=== PATIENT | male | born 1965 | race Caucasian/White ===

== ENCOUNTER 2017-12-25 08:42 | Observation (INO) | payer OTHER ==
[2017-12-25] MEDS ORDERED: Albuterol/Ipratropium 3.0-0.5 MG/3 ML Neb Soln NEB ONE (08:52)
[2017-12-25] MEDS ORDERED: methylPREDNISolone Sodium Succinate 125 MG/2 ML SDV IVPUSH STA (08:55)
--- NOTE | 2017-12-25 08:56 | EDM.PDOC ---
ED HPI GENERAL MEDICAL PROBLEM - General Stated Complaint: SOB Time Seen by Provider: 12/25/17 08:42 Source of Information: Reports: Patient, Family History Limitations: Reports: Respiratory Distress - History of Present Illness INITIAL COMMENTS - FREE TEXT/NARRATIVE: 52 years old w m with a h/o COPD, quit tobacco use 2 weks ago.Came with family to the ED due to worsening of SOB , Pulse ox was 86% on RA on arrival. Pt could talk 3 word sentences. Pt had exp wheezes as well. No Dizziness, no Lightheadedness, no chest pain, no N/VC/D or any other acute medical issues. BP 126/78 Pulse 101 pulse ox 88 Temp 36.7 Onset Date: 12/22/17 Onset Time: 21:00 Duration: Chronic Location: Reports: Chest Quality: Reports: Same as Previous Episode Severity: Moderate Improves with: Reports: Medication Worsens with: Reports: Movement Context: Reports: Other (COPD) Associated Symptoms: Reports: Cough - Related Data Allergies Allergy/AdvReac Type Severity Reaction Status Date / Time No Known Allergies Allergy Verified 12/25/17 08:52 Home Meds: Home Meds Albuterol [Proventil HFA] 1 puff INH QID PRN 12/25/17 [History] Albuterol/Ipratropium [DuoNeb 3.0-0.5 MG/3 ML] 3 ml .XX QID 12/25/17 [History] Glycopyrrolate/Formoterol Fum [Bevespi Aerosphere Inhaler] 2 puff IH BID [History] ED ROS GENERAL - Review of Systems Review Of Systems: See Below Constitutional: Reports: No Symptoms HEENT: Reports: No Symptoms Respiratory: Reports: Shortness of Breath, Wheezing Cardiovascular: Reports: No Symptoms Endocrine: Reports: No Symptoms GI/Abdominal: Reports: No Symptoms : Reports: No Symptoms Musculoskeletal: Reports: No Symptoms Skin: Reports: No Symptoms Neurological: Reports: No Symptoms Psychiatric: Reports: No Symptoms Hematologic/Lymphatic: Reports: No Symptoms Immunologic: Reports: No Symptoms ED EXAM, GENERAL - Physical Exam Exam: See Below Exam Limited By: No Limitations General Appearance: Alert, WD/WN, Moderate Distress, Thin Eye Exam: Bilateral Eye: Normal Inspection Ears: Normal External Exam Ear Exam: Bilateral Ear: Auricle Normal Nose: Normal Inspection, Normal Mucosa, No Blood Throat/Mouth: Normal Inspection, Normal Lips, Normal Voice, No Airway Compromise Head: Atraumatic, Normocephalic Neck: Normal Inspection, Supple, Non-Tender, Full Range of Motion Respiratory/Chest: Chest Non-Tender, Respiratory Distress, Wheezing Cardiovascular: Normal Peripheral Pulses, Regular Rate, Rhythm, No Edema, No Gallop, No JVD, No Murmur Peripheral Pulses: 1+: Brachial (L) GI/Abdominal: Normal Bowel Sounds, Soft, Non-Tender, No Organomegaly, No Abnormal Bruit, No Mass, Pelvis Stable (Male) Exam: Deferred Rectal (Males) Exam: Deferred Back Exam: Normal Inspection, Full Range of Motion Extremities: Normal Inspection, Normal Range of Motion, Non-Tender, No Pedal Edema, Normal Capillary Refill, Pedal Edema Neurological: Alert, Oriented, CN II-XII Intact, Normal Cognition, Normal Gait, No Motor/Sensory Deficits Psychiatric: Normal Affect, Normal Mood Skin Exam: Warm, Dry, Intact, Normal Color, No Rash Lymphatic: No Adenopathy Course - Vital Signs Text/Narrative:: 52 years old w m with a h/o COPD, quit tobacco use 2 weks ago.Came with family to the ED due to worsening of SOB , Pulse ox was 86% on RA on arrival. Pt could talk 3 word sentences. Pt had exp wheezes as well. No Dizziness, no Lightheadedness, no chest pain, no N/VC/D or any other acute medical issues. BP 126/78 Pulse 101 pulse ox 88 Temp 36.7 PE: 52 y.o.w.f with SOB Labs: CBC nl HGB was 15.8, BMP was nl Impression: COPD exacerbation Tx: Solu Medrol, Duoneb, Alb neb X 4 Reexam: Wheezing Improved. However, Pulse ox is 88% on RA Plan: Admit to [facility]. Last Recorded V/S: Last Vital Signs Temp 36.2 C 12/25/17 12:55 Pulse 105 H 12/25/17 12:55 Resp 20 12/25/17 12:55 BP 133/86 12/25/17 12:55 Pulse Ox 92 L 12/25/17 12:55 - Orders/Labs/Meds Orders: Active Orders 24 hr Category Date Time Status RT Aerosol Therapy [RC] ASDIRECTED Care 12/25/17 08:52 Active CXR [Chest 2V] [CR] Stat Exams 12/25/17 08:54 Taken Medication Orders Albuterol/Ipratropium (Duoneb 3.0-0.5 Mg/3 Ml) 3 ml INH ONETIME PRN PRN Reason: every 4 hours while awake x 4 Methylprednisolone Sodium Succinate (Solu-Medrol) 125 mg IVPUSH Q8H PATRICIA Last Admin: 12/25/17 14:00 Dose: 125 mg Sodium Chloride (Saline Flush) 10 ml FLUSH ASDIRECTED PRN PRN Reason: Keep Vein Open Labs: Laboratory Tests 12/25/17 12/25/17 Range/Units 09:05 09:05 WBC 7.5 (4.5-12.0) X10-3/uL RBC 5.07 (4.30-5.75) x10(6)uL Hgb 15.8 H (11.5-15.5) g/dL Hct 47.4 (30.0-51.3) % MCV 93.5 (80-96) fL MCH 31.2 (27.7-33.6) pg MCHC 33.4 (32.2-35.4) g/dL RDW 13.0 (11.5-15.5) % Plt Count 285 (125-369) X10(3)uL MPV 8.6 (7.4-10.4) fL Add Manual Diff Yes Neutrophils % (Manual) 56 (46-82) % Lymphocytes % (Manual) 26 (13-37) % Monocytes % (Manual) 5 (4-12) % Eosinophils % (Manual) 13 H (0-5) % Sodium 138 (135-145) mmol/L Potassium 4.1 (3.5-5.3) mmol/L Chloride 103 (100-110) mmol/L Carbon Dioxide 26 (21-32) mmol/L BUN 16 (7-18) mg/dL Creatinine 0.9 (0.70-1.30) mg/dL Est Cr Clr Drug Dosing 94.50 mL/min Estimated GFR (MDRD) > 60 (>60) BUN/Creatinine Ratio 17.8 (9-20) Glucose 114 (80-116) mg/dL Calcium 8.8 (8.6-10.2) mg/dL Meds: Medications Generic Name Dose Route Start Last Admin Trade Name Freq PRN Reason Stop Dose Admin Albuterol/Ipratropium 3 ml 12/25/17 12:11 Duoneb 3.0-0.5 Mg/3 Ml INH ONETIME PRN every 4 hours while awake x 4 Methylprednisolone Sodium Succinate 125 mg 12/25/17 12:15 12/25/17 14:00 Solu-Medrol IVPUSH 125 mg Q8H PATRICIA Administration Sodium Chloride 10 ml 12/25/17 12:11 Saline Flush FLUSH ASDIRECTED PRN Keep Vein Open Discontinued Medications Generic Name Dose Route Start Last Admin Trade Name Nathanaelq PRN Reason Stop Dose Admin Albuterol 10 mg 12/25/17 10:15 12/25/17 11:17 Proventil Neb Soln INH 12/25/17 10:16 10 mg ONETIME ONE Administration Albuterol/Ipratropium 3 ml 12/25/17 08:52 12/25/17 08:58 Duoneb 3.0-0.5 Mg/3 Ml NEB 12/25/17 08:53 3 ml ONETIME ONE Administration Methylprednisolone Sodium Succinate 125 mg 12/25/17 08:55 12/25/17 09:32 Solu-Medrol IVPUSH 12/25/17 08:56 125 mg ONETIME STA Administration Departure - Departure Time of Disposition: 12:16 Disposition: Refer to Observation Condition: Fair Clinical Impression: COPD with exacerbation - Discharge Information - My Orders Last 24 Hours: My Active Orders 12/25/17 08:52 RT Aerosol Therapy [RC] ASDIRECTED 12/25/17 08:54 CXR [Chest 2V] [CR] Stat - Assessment/Plan Last 24 Hours: My Active Orders 12/25/17 08:52 RT Aerosol Therapy [RC] ASDIRECTED 12/25/17 08:54 CXR [Chest 2V] [CR] Stat
[2017-12-25] MEDS ORDERED: Albuterol 0.5% 5 MG/ML Neb Soln 20 ML Bottle NEB ONE (09:58)
[2017-12-25] MEDS ORDERED: Albuterol 0.083% 2.5 MG/3 ML Neb Soln INH ONE (10:15)
[2017-12-25] MEDS: methylPREDNISolone Sodium Succinate 125 MG/2 ML SDV IVPUSH SCH ×2 (14:00→20:00)
[2017-12-25] MEDS: Sodium Chloride 0.9% 10 ML Syringe FLUSH PRN (20:01)
[2017-12-26] MEDS: Albuterol/Ipratropium 3.0-0.5 MG/3 ML Neb Soln INH PRN ×2 (04:31→09:23)
[2017-12-26] MEDS: methylPREDNISolone Sodium Succinate 125 MG/2 ML SDV IVPUSH SCH ×3 (04:31→20:53)
[2017-12-26] MEDS: Sodium Chloride 0.9% 10 ML Syringe FLUSH PRN ×2 (04:32→20:59)
[2017-12-26] MEDS ORDERED: Azithromycin 250 MG Tab PO ONE (12:21)
[2017-12-26] MEDS ORDERED: Calcium Carbonate 500 MG Tab.Chew PO PRN (12:58)
[2017-12-26] MEDS: Famotidine 20 MG Tab PO SCH ×2 (13:40→20:53)
[2017-12-26] MEDS: Albuterol/Ipratropium 3.0-0.5 MG/3 ML Neb Soln NEB SCH ×2 (13:54→18:38)
--- NOTE | 2017-12-26 15:03 | PN ---
DATE SEEN: 12/26/2017 HISTORY OF PRESENT ILLNESS: Jair Fatima is a 52-year-old male, seen today for exacerbation of COPD. Progressive decline in that regard. Requiring supplemental O2. IV methylprednisolone onboard. He has had a bit more of a productive sputum today. Culture pending. RADIOGRAPHS: 12/25/2017, no major pathology present. PHYSICAL EXAMINATION: VITAL SIGNS: 36.5; 95 is the pulse; 110/73, mean blood pressure 85; respirations 20; and O2 saturation 93 on 2 L. GENERAL: Appears much more comfortable than his saturation would suggest. Speech is fluent. NECK: Benign. Thyroid small. No thyromegaly or carotid bruits. CHEST: Prolonged expiratory phase. Decreased breath sounds. Generalized wheezing. HEART: Regular, without ectopy or murmur. ABDOMEN: Benign. ASSESSMENT: Complicated dyspnea, radiographic evidence of chronic obstructive pulmonary disease, but not severe. PLAN: PFT ordered, no longer performed. We will obtain sputum culture as available, RT treatments. Cooperative care and well-being. Intervention as appropriate. Proceed accordingly. /[id number] /MARY
[2017-12-27] MEDS: Albuterol/Ipratropium 3.0-0.5 MG/3 ML Neb Soln NEB SCH ×3 (00:52→11:45)
[2017-12-27] MEDS: Sodium Chloride 0.9% 10 ML Syringe FLUSH PRN (05:06)
[2017-12-27] MEDS: methylPREDNISolone Sodium Succinate 125 MG/2 ML SDV IVPUSH SCH ×2 (05:06→12:12)
[2017-12-27] MEDS: Famotidine 20 MG Tab PO SCH (08:48)
--- NOTE | 2017-12-30 09:59 | DISCH ---
DISCHARGE DATE: 12/27/2017 HOSPITAL COURSE: Jair Fatima is a 52-year-old male admitted with acute exacerbation of COPD. Sputum pending at the time of his discharge. Readings comfortable, respiratory therapies improved, off O2, O2 saturation satisfactory, comfortable with discharge. Discharged on low-dose prednisone and completion of azithromycin, Z-Girish. Follow up in 2 weeks' duration. Continued cessation of smoking. Addendum: Culture came back as Pseudomonas, was switched from azithromycin to levofloxacin 500 mg one daily, follow up in 3 weeks' time. SURGICAL PROCEDURES: None. CONSULTATIONS: None. /[id number] CAREY/MARY
--- NOTE | 2017-12-30 12:39 | HP ---
ADMISSION DATE: 12/25/2017 HISTORY OF PRESENT ILLNESS: Jair Fatima is a 52-year-old, male, admitted to [facility] with an acute onset of respiratory difficulty, complicated cough, shortness of breath, marked hypoxia, difficulty maintaining conversations, complicated wheezing, and respiratory difficulty. He was seen at [facility] ER and admitted to the hospital. Long-term smoker, recent reduction, and cessation planned. No ill contacts. No travel ouside [place] He has been in relatively good health. Works at [employer]. Present daily medications noted. PAST MEDICAL HISTORY: Significant for left rotator cuff tear, tonsilloadenoidectomy, and left ear surgery. No other operative procedures, hospitalizations, unusual childhood diseases, major injuries, or fractures. SOCIAL HISTORY: . No children. Works at [employer] and a 1-2 pack per day smoker, recent reduction in cessation. FAMILY HISTORY: Mom 70 years of age, good health. Dad 83, in good health, one sister in good health. No family history of early heart disease, diabetes mellitus, or inheritable cancers. REVIEW OF SYSTEMS: GENERAL: Feeling well other than respiratory symptoms. EYES: Sees well. EARS: Hears well. OROPHARYNX: Poor dentition. Many absent teeth. CHEST: Please see HPI. CARDIOVASCULAR: Please see HPI. GI: Regular predictable stools, no blood in stools. : Good voiding pattern. No blood in urine. SKIN: No open sores or lesions. ENDOCRINE: No excessive thirst or urination. ALLERGY: No chronic cough, wheeze, or congestion. PSYCHIATRIC: Mood stable. PHYSICAL EXAMINATION: VITAL SIGNS: Stable as socumented. The patient is cooperative and conversant, with O2 in place. HEENT: Speech was fluent. Funduscopic benign. Conjunctivae clear. Bright tympanic membranes. Clear nasal discharge. Mouth and oropharynx clear. NECK: Benign. Thyroid small. CHEST: Clear in all lung watts. No adventitious sounds. Coarse rhonchi at both bases. Distant heart sounds, diffuse wheezing. HEART: Distant heart sounds. Occasional ectopy, rate in the 90s. ABDOMEN: Benign. No hepatosplenomegaly. : Normal male genitalia. Testes are normal in size, shape, and contour. Hernias absent. RECTAL: Deferred. EXTREMITIES: Well perfused. LABORATORY STUDIES: White count 7500, hemoglobin 15.8, marked eosinophilia. Electrolytes were satisfactory. ASSESSMENT: Acute exacerbation of chronic obstructive pulmonary disease, infectious versus inflammatory. PLAN: Aggressive therapy, intravenous corticosteroids, aggressive RT treatment, complementary care and well being, antibiotics if sputum under some duress and concern. /[id number] CAREY/MARY
--- NOTE | 2017-12-30 15:15 | CR ---
INDICATION: Shortness of breath. CHEST, TWO VIEWS: COMPARISON: None. FINDINGS: Lungs clear. There may be some mild hyperinflation versus good inspiration. No pleural effusion or pneumothorax. IMPRESSION: 1. No acute chest process. MTDD
== END 2017-12-27 12:30 | disposition home or self-care (01) ==
LOC: FB.ED 08:42 → FB.MS 12:11
PROVIDERS: ADMIT Family Medicine; ATTEND Family Medicine
DX: J44.1 Chronic obstructive pulmonary disease with (acute) exacerbation (principal); Z87.891 Personal history of nicotine dependence; Z79.899 Other long term (current) drug therapy
CPT/HCPCS: 36415; 71046; 80048; 85025; 85379; 87070; 87077; 87186; 87205; 94150; 94640; 99285; A9270; J2930; J7050; J7620

== ENCOUNTER 2018-02-09 22:10 | Observation (INO) | payer OTHER ==
[2018-02-09] MEDS ORDERED: Albuterol/Ipratropium 3.0-0.5 MG/3 ML Neb Soln NEB ONE (22:29)
[2018-02-09] MEDS ORDERED: methylPREDNISolone Sodium Succinate 125 MG/2 ML SDV IVPUSH ONE (22:29)
--- NOTE | 2018-02-09 22:34 | EDM.PDOC ---
ED HPI GENERAL MEDICAL PROBLEM - General Stated Complaint: TROUBLE BREATHING Time Seen by Provider: 02/09/18 22:10 Source of Information: Reports: Patient, Family History Limitations: Reports: Respiratory Distress - History of Present Illness INITIAL COMMENTS - FREE TEXT/NARRATIVE: 52 years old w m -quit smoking 2 months ago-with h/o copd, not on home O2, came to the ed with is mom due to SOB and cough. Pt could talk 2 word sentences only on arrival. He c/o chest tightness as well. Pt got off prednison yesterday. No F/C, Pt is coughing up yellowish sputum. Pt's "inhalers do not work at home anymore" No N/V/D BP 115/73 Pulse 124 RR 25 Pulse ox on RA 93%Temp 36.9 Onset Date: 02/08/18 Onset Time: 07:00 Duration: Getting Worse Location: Reports: Chest Quality: Reports: Pressure, Same as Previous Episode Severity: Moderate Improves with: Reports: Medication, Rest, Other (o2) Worsens with: Reports: Movement Context: Reports: Other (COPD) Associated Symptoms: Reports: Chest Pain, Cough, Shortness of Breath, Weakness Treatments [employer] DEVELOPER: Reports: Other (see below) (albuterol) Back Pain Score (Numeric/FACES): 1 - Related Data Allergies Allergy/AdvReac Type Severity Reaction Status Date / Time No Known Allergies Allergy Verified 02/09/18 23:04 Home Meds: Home Meds Albuterol [Proventil HFA] 2 puff INH QID PRN 12/25/17 [History] Albuterol/Ipratropium [DuoNeb 3.0-0.5 MG/3 ML] 3 ml IH QID 12/25/17 [History] Glycopyrrolate/Formoterol Fum [Bevespi Aerosphere Inhaler] 2 puff IH BID [History] Ibuprofen [Advil] 400 mg PO DAILY@1200 12/27/17 [History] Past Medical History HEENT History: Reports: Impaired Vision Respiratory History: Reports: COPD - Infectious Disease History Infectious Disease History: Reports: None - Past Surgical History HEENT Surgical History: Reports: Oral Surgery, Tonsillectomy, Other (See Below) Other HEENT Surgeries/Procedures: surgery on ear drum Social & Family History - Family History Family Medical History: Noncontributory - Caffeine Use Caffeine Use: Reports: None ED ROS GENERAL - Review of Systems Review Of Systems: Unable To Obtain (sob) ED EXAM, GENERAL - Physical Exam Exam: See Below Exam Limited By: Respiratory Distress General Appearance: Alert, Moderate Distress, Thin Eye Exam: Bilateral Eye: Normal Inspection Ears: Normal External Exam Ear Exam: Bilateral Ear: Auricle Normal Nose: Normal Inspection, Normal Mucosa, No Blood Throat/Mouth: Normal Lips, Normal Oropharynx, Normal Voice, No Airway Compromise Head: Atraumatic, Normocephalic Neck: Normal Inspection, Supple, Non-Tender, Full Range of Motion Respiratory/Chest: Respiratory Distress, Decreased Breath Sounds, Rhonchi, Wheezing Cardiovascular: Regular Rate, Rhythm, No Edema, Tachycardia GI/Abdominal: Normal Bowel Sounds, Soft, Non-Tender, No Organomegaly, No Distention, No Abnormal Bruit, No Mass, Pelvis Stable (Male) Exam: Deferred Rectal (Males) Exam: Deferred Back Exam: Normal Inspection, Full Range of Motion Extremities: Normal Inspection, Normal Range of Motion, Non-Tender Neurological: Alert, Oriented, CN II-XII Intact, Normal Cognition, Normal Gait, No Motor/Sensory Deficits Psychiatric: Normal Affect, Normal Mood Skin Exam: Warm, Dry, Intact, Normal Color, No Rash Lymphatic: No Adenopathy Course - Vital Signs Text/Narrative:: 52 years old w m -quit smoking 2 months ago-with h/o copd, not on home O2, came to the ed with is mom due to SOB and cough. Pt could talk 2 word sentences only on arrival. He c/o chest tightness as well. Pt got off prednison yesterday. No F/C, Pt is coughing up yellowish sputum. Pt's "inhalers do not work at home anymore" No N/V/D BP 115/73 Pulse 124 RR 25 Pulse ox on RA 93%Temp 36.9 PE: thin 52 years old w m in resp distress. Imaging: CXR: COPD, no infiltrate, official report is pending Labs: pending Impression: COPD exacerbation, hyponatremia Tx: O2 by NC, Duo neb, Albut neb, Solumedrol Reexam: Mild improvement, HR 117 Plan: Admit to [facility] 02/10/2018 6.34 am Addendum: Labs: WBC 20K Neut 88%. Na 131. Lactic Acid, UA. NS and ABX were ordered. Pt was reexamined, HR was 100. resp status improved 70% . Last Recorded V/S: Last Vital Signs Temp 36.2 C 02/10/18 04:00 Pulse 103 H 02/10/18 04:00 Resp 18 02/10/18 04:00 BP 104/72 02/10/18 04:00 Pulse Ox 90 L 02/10/18 04:00 - Orders/Labs/Meds Orders: Active Orders 24 hr Category Date Time Status RT Aerosol Therapy [RC] ASDIRECTED Care 02/09/18 22:30 Active Chest 2V [CR] Stat Exams 02/09/18 23:40 Taken Sodium Chloride 0.9% [Saline Flush] Med 02/09/18 23:04 Active 10 ml FLUSH ASDIRECTED PRN Medication Orders Acetaminophen (Tylenol) 650 mg PO Q4H PRN PRN Reason: Pain (mild 1-3) Last Admin: 02/10/18 04:49 Dose: 650 mg Albuterol (Proventil Neb Soln) 2.5 mg NEB Q2H PRN PRN Reason: Shortness Of Breath/wheezing Last Admin: 02/10/18 04:23 Dose: 2.5 mg Levofloxacin/Dextrose 500 mg/ (Premix) 100 mls @ 100 mls/hr IV ONETIME ONE Stop: 02/10/18 07:32 Last Admin: 02/10/18 06:51 Dose: 100 mls/hr Ondansetron HCl (Zofran) 4 mg IV Q4H PRN PRN Reason: Nausea/Vomiting Sodium Chloride (Saline Flush) 10 ml FLUSH ASDIRECTED PRN PRN Reason: Keep Vein Open Last Admin: 02/09/18 23:05 Dose: 10 ml Sodium Chloride (Saline Flush) 10 ml FLUSH ASDIRECTED PRN PRN Reason: Keep Vein Open Labs: Laboratory Tests 02/09/18 02/09/18 02/09/18 Range/Units 23:50 23:50 23:50 WBC 20.4 H (4.5-12.0) X10-3/uL RBC 4.79 (4.30-5.75) x10(6)uL Hgb 14.9 (11.5-15.5) g/dL Hct 44.4 (30.0-51.3) % MCV 92.7 (80-96) fL MCH 31.1 (27.7-33.6) pg MCHC 33.5 (32.2-35.4) g/dL RDW 14.3 (11.5-15.5) % Plt Count 378 H (125-369) X10(3)uL MPV 8.3 (7.4-10.4) fL Add Manual Diff Yes Neutrophils % (Manual) 88 H (46-82) % Lymphocytes % (Manual) 5 L (13-37) % Monocytes % (Manual) 1 L (4-12) % Eosinophils % (Manual) 6 H (0-5) % POC VBG pH (7.31-7.41) POC VBG pCO2 (41-51) mmHG POC VBG HCO3 (23-28) mmol/L POC VBG Total CO2 (24-29) mmol/L POC VBG Base Excess (-2-3) mmol/L Sodium 131 L (135-145) mmol/L Potassium 4.2 (3.5-5.3) mmol/L Chloride 98 L D (100-110) mmol/L Carbon Dioxide 22 (21-32) mmol/L BUN 23 H (7-18) mg/dL Creatinine 1.1 (0.70-1.30) mg/dL Est Cr Clr Drug Dosing 74.22 mL/min Estimated GFR (MDRD) > 60 (>60) BUN/Creatinine Ratio 20.9 H (9-20) Glucose 116 (80-116) mg/dL Calcium 8.9 (8.6-10.2) mg/dL Troponin I < 0.017 L (<0.017-0.056) ng/mL 02/09/18 Range/Units 23:50 WBC (4.5-12.0) X10-3/uL RBC (4.30-5.75) x10(6)uL Hgb (11.5-15.5) g/dL Hct (30.0-51.3) % MCV (80-96) fL MCH (27.7-33.6) pg MCHC (32.2-35.4) g/dL RDW (11.5-15.5) % Plt Count (125-369) X10(3)uL MPV (7.4-10.4) fL Add Manual Diff Neutrophils % (Manual) (46-82) % Lymphocytes % (Manual) (13-37) % Monocytes % (Manual) (4-12) % Eosinophils % (Manual) (0-5) % POC VBG pH 7.42 H (7.31-7.41) POC VBG pCO2 31.2 L (41-51) mmHG POC VBG HCO3 20.4 L (23-28) mmol/L POC VBG Total CO2 21 L (24-29) mmol/L POC VBG Base Excess -4 L (-2-3) mmol/L Sodium (135-145) mmol/L Potassium (3.5-5.3) mmol/L Chloride (100-110) mmol/L Carbon Dioxide (21-32) mmol/L BUN (7-18) mg/dL Creatinine (0.70-1.30) mg/dL Est Cr Clr Drug Dosing mL/min Estimated GFR (MDRD) (>60) BUN/Creatinine Ratio (9-20) Glucose (80-116) mg/dL Calcium (8.6-10.2) mg/dL Troponin I (<0.017-0.056) ng/mL Meds: Medications Generic Name Dose Route Start Last Admin Trade Name Freq PRN Reason Stop Dose Admin Acetaminophen 650 mg 02/10/18 04:34 02/10/18 04:49 Tylenol PO 650 mg Q4H PRN Administration Pain (mild 1-3) Albuterol 2.5 mg 02/10/18 00:02 02/10/18 04:23 Proventil Neb Soln NEB 2.5 mg Q2H PRN Administration Shortness Of Breath/wheezing Levofloxacin/Dextrose 500 mg/ 100 mls @ 100 mls/hr 02/10/18 06:33 02/10/18 06 :51 Premix IV 02/10/18 07:32 100 mls/hr ONETIME ONE Administration Ondansetron HCl 4 mg 02/10/18 00:02 Zofran IV Q4H PRN Nausea/Vomiting Sodium Chloride 10 ml 02/09/18 23:04 02/09/18 23:05 Saline Flush FLUSH 10 ml ASDIRECTED PRN Administration Keep Vein Open Sodium Chloride 10 ml 02/10/18 00:02 Saline Flush FLUSH ASDIRECTED PRN Keep Vein Open Discontinued Medications Generic Name Dose Route Start Last Admin Trade Name Tia PRN Reason Stop Dose Admin Albuterol Confirm 02/09/18 22:59 02/09/18 23:02 Proventil Neb Soln Administered 02/09/18 23:00 Not Given Dose 2.5 mg .ROUTE .STK-MED ONE Albuterol 2.5 mg 02/09/18 23:00 02/10/18 01:34 Proventil Neb Soln NEB 02/09/18 23:01 2.5 mg ONETIME ONE Administration Albuterol/Ipratropium 3 ml 02/09/18 22:29 02/09/18 22:40 Duoneb 3.0-0.5 Mg/3 Ml NEB 02/09/18 22:30 3 ml ONETIME ONE Administration Sodium Chloride 500 mls @ 999 mls/hr 02/10/18 06:36 02/10/18 06:50 Normal Saline IV 02/10/18 07:06 999 mls/hr .BOLUS ONE Administration Ketorolac Tromethamine 30 mg 02/09/18 23:00 02/09/18 23:04 Toradol IVPUSH 02/09/18 23:01 30 mg ONETIME ONE Administration Methylprednisolone Sodium Succinate 125 mg 02/09/18 22:29 02/09/18 22:40 Solu-Medrol IVPUSH 02/09/18 22:30 125 mg ONETIME ONE Administration Departure - Departure Time of Disposition: 23:05 Disposition: Refer to Observation Condition: Fair Clinical Impression: COPD with exacerbation - Discharge Information - My Orders Last 24 Hours: My Active Orders 02/09/18 22:30 RT Aerosol Therapy [RC] ASDIRECTED 02/09/18 23:04 Sodium Chloride 0.9% [Saline Flush] 10 ml FLUSH ASDIRECTED PRN 02/09/18 23:40 Chest 2V [CR] Stat - Assessment/Plan Last 24 Hours: My Active Orders 02/09/18 22:30 RT Aerosol Therapy [RC] ASDIRECTED 02/09/18 23:04 Sodium Chloride 0.9% [Saline Flush] 10 ml FLUSH ASDIRECTED PRN 02/09/18 23:40 Chest 2V [CR] Stat
[2018-02-09] MEDS ORDERED: Albuterol 0.083% 2.5 MG/3 ML Neb Soln ONE (22:59)
[2018-02-09] MEDS ORDERED: Ketorolac 30 MG/ML SDV IVPUSH ONE (23:00)
[2018-02-09] MEDS: Albuterol 0.083% 2.5 MG/3 ML Neb Soln NEB ONE (23:02)
[2018-02-09] MEDS: Sodium Chloride 0.9% 10 ML Syringe FLUSH PRN (23:05)
[2018-02-10] MEDS ORDERED: Sodium Chloride 0.9% 10 ML Syringe FLUSH PRN (00:02)
[2018-02-10] MEDS ORDERED: Ondansetron 4 MG/2 ML SDV IV PRN (00:02)
[2018-02-10] MEDS: Albuterol 0.083% 2.5 MG/3 ML Neb Soln NEB ONE (01:34)
[2018-02-10] MEDS: Albuterol 0.083% 2.5 MG/3 ML Neb Soln NEB PRN ×4 (04:23→18:30)
[2018-02-10] MEDS: Acetaminophen 325 MG Tab PO PRN (04:49)
[2018-02-10] MEDS ORDERED: Levofloxacin/Dextrose 5%-Water 500 MG in Premix Bag 1 BAG IV ONE (06:33)
[2018-02-10] MEDS ORDERED: Sodium Chloride 0.9% 500 ML IV ONE (06:36)
[2018-02-10] MEDS: methylPREDNISolone Sodium Succinate 40 MG/1 ML SDV IVPUSH SCH ×2 (09:01→17:11)
[2018-02-10] MEDS: Sodium Chloride 0.9% 10 ML Syringe FLUSH PRN ×2 (09:01→17:11)
[2018-02-10] MEDS: Azithromycin 500 MG in Sodium Chloride 0.9% 250 ML IV SCH (09:01)
--- NOTE | 2018-02-10 10:55 | HP ---
ADMISSION DATE: 02/10/2018 HISTORY OF PRESENT ILLNESS: Jair Fatima is a 52-year-old male, [place] resident, who was seen and evaluated at [facility], [place] and admitted to the hospital. Hospitalized about 6 weeks ago with complicated respiratory illness. Feeling well until first part of the week Wednesday, little fatigable, tired. Did not go to work Wednesday and Wednesday. Chills, sweats, thick and complicated sputum, mild respiratory difficulty, continue to do some inhalant therapy without benefit. Fever not suspected, but some chills. No ill contacts. No allergies to medication. Has been in good health. MEDICATIONS ON ADMISSION: Include: 1. Albuterol. 2. DuoNeb. 3. Glycopyrrolate/formoterol 2 puffs b.i.d. 4. P.r.n. ibuprofen. ALLERGIES: No medication, environmental, or latex allergies. PAST SURGICAL HISTORY: Has had a previous left rotator cuff tear, probably needs one on the right. No other operative procedures, hospitalizations, unusual childhood diseases, major injuries, or fractures. SOCIAL HISTORY: Resides in [place], works at [employer]. . No children. Quit smoking about 6 weeks ago for good. Had been reduced before that time, no alcohol or illicit drug use. FAMILY HISTORY: Dad 84, good health. Mom 72, good health. No brothers and sister in good health. No family history of early heart disease, diabetes mellitus, or inheritable cancers. REVIEW OF SYSTEMS: CONSTITUTIONAL: Feeling generally poorly. EYES: Sees well. EARS: Hears well. OROPHARYNX: Multiple dental caries and absent teeth. CHEST: Please see HPI. CARDIOVASCULAR: Please see HPI. GI: Regular predictable stools, no blood in the stools. : Good voiding pattern. No blood in urine. SKIN: No new lesions, eruptions or moles. ENDOCRINE: No excessive thirst or urination: ALLERGY: No chronic cough. PSYCHIATRIC: Mood stable. LABORATORY DATA: White count 20,400, hemoglobin 14.9, platelets 378,000, 88% neutrophils, blood gases excellent with pH of 7.42, pO2 normal. Electrolytes satisfactory. BNP 168. Urinalysis was clear. Chest x-ray: Some bibasilar infiltrates. ASSESSMENT: Complicated respiratory infection, recurrent in nature. PLAN: IV medications; Rocephin, azithromycin. Aggressive inhalation therapy. Sputum will be obtained. Complementary care and well being, IV steroids, short- term stay expected. Addendum: We will do alpha-1 antitrypsin intervention. /[id number] CAREY/MARY
[2018-02-10] MEDS ORDERED: Aluminum Hydroxide/Magnesium Hydroxide Susp 30 ML Cup PO PRN ×2 (22:37→22:40)
[2018-02-10] MEDS: MAGNESIUM CARBONATE CHEW SCH (22:51)
[2018-02-10] MEDS: ALUMINUM HYDROXIDE CHEW SCH (22:51)
[2018-02-11] MEDS: Albuterol 0.083% 2.5 MG/3 ML Neb Soln NEB PRN ×2 (00:42→07:25)
[2018-02-11] MEDS: methylPREDNISolone Sodium Succinate 40 MG/1 ML SDV IVPUSH SCH ×2 (00:43→09:33)
[2018-02-11] MEDS: Sodium Chloride 0.9% 10 ML Syringe FLUSH PRN (00:44)
[2018-02-11] MEDS: Acetaminophen 325 MG Tab PO PRN (07:53)
[2018-02-11] MEDS ORDERED: cefTRIAXone 1,000 MG VIAL IVPUSH SCH (08:00)
--- NOTE | 2018-02-11 08:52 | PCM.PN ---
- General Info Date of Service: 02/11/18 Subjective Update: Jair is off oxygen feels better and would like to go home today. - Review of Systems HEENT: Reports: No Symptoms Pulmonary: Reports: Cough Cardiovascular: Reports: No Symptoms Gastrointestinal: Reports: No Symptoms - Patient Data Vitals - Most Recent: Last Vital Signs Temp 97.6 F 02/11/18 08:05 Pulse 98 02/11/18 08:05 Resp 20 02/11/18 08:05 BP 110/71 02/11/18 08:05 Pulse Ox 90 L 02/11/18 08:05 Weight - Most Recent: 61.887 kg I&O - Last 24 Hours: Intake & Output 02/10/18 02/11/18 02/11/18 22:59 06:59 14:59 Intake Total 0 Balance 0 Lab Results Last 24 Hours: Laboratory Results - last 24 hr 02/11/18 02/11/18 Range/Units 08:30 08:30 WBC 13.2 H (4.5-12.0) X10-3/uL RBC 4.63 (4.30-5.75) x10(6)uL Hgb 14.2 (11.5-15.5) g/dL Hct 43.1 (30.0-51.3) % MCV 93.1 (80-96) fL MCH 30.6 (27.7-33.6) pg MCHC 32.9 (32.2-35.4) g/dL RDW 14.0 (11.5-15.5) % Plt Count 363 (125-369) X10(3)uL MPV 8.4 (7.4-10.4) fL Neut % (Auto) 93.5 H (46-82) % Lymph % (Auto) 2.5 L (13-37) % [place] % (Auto) 3.3 L (4-12) % Eos % (Auto) 0 L (1.0-5.0) % Baso % (Auto) 1 (0-2) % Neut # (Auto) 12.4 H (1.6-8.3) # Lymph # (Auto) 0.3 L (0.6-5.0) # [place] # (Auto) 0.4 (0.0-1.3) # Eos # (Auto) 0.0 (0.0-0.8) # Baso # (Auto) 0.1 (0.0-0.2) # Sodium 137 (135-145) mmol/L Potassium 4.2 (3.5-5.3) mmol/L Chloride 102 (100-110) mmol/L Carbon Dioxide 25 (21-32) mmol/L BUN 21 H (7-18) mg/dL Creatinine 1.5 H (0.70-1.30) mg/dL Est Cr Clr Drug Dosing 51.57 mL/min Estimated GFR (MDRD) 50 L (>60) BUN/Creatinine Ratio 14.0 (9-20) Glucose 177 H (80-116) mg/dL Calcium 8.7 (8.6-10.2) mg/dL Moshe Results Last 24 Hours: Microbiology 02/10/18 06:50 Aerobic Blood Culture - Preliminary Blood - Venous - Lab Draw NO GROWTH AFTER 1 DAY Anaerobic Blood Culture - Preliminary NO GROWTH AFTER 1 DAY 02/10/18 06:40 Aerobic Blood Culture - Preliminary Blood - Venous NO GROWTH AFTER 1 DAY Anaerobic Blood Culture - Preliminary NO GROWTH AFTER 1 DAY Med Orders - Current: Current Medications Acetaminophen (Tylenol) 650 mg PO Q4H PRN PRN Reason: Pain (mild 1-3) Last Admin: 02/11/18 07:53 Dose: 650 mg Al Hydroxide/Mg Carbonate (Gaviscon) 2 tab CHEW QIDPCANDBED [facility] Last Admin: 02/10/18 22:51 Dose: Not Given Al Hydroxide/Mg Hydroxide (Mag-Al Susp) 15 ml PO Q2H PRN PRN Reason: Heartburn Al Hydroxide/Mg Hydroxide (Mag-Al Susp) 30 ml PO Q2H PRN PRN Reason: Heartburn Last Admin: 02/10/18 22:51 Dose: 30 ml Albuterol (Proventil Neb Soln) 2.5 mg NEB Q2H PRN PRN Reason: Shortness Of Breath/wheezing Last Admin: 02/11/18 07:25 Dose: 2.5 mg Ceftriaxone Sodium (Rocephin) 1,000 mg IVPUSH Q24H [facility] Last Admin: 02/11/18 07:40 Dose: 1,000 mg Azithromycin 500 mg/ Sodium (Chloride) 250 mls @ 250 mls/hr IV Q24H [facility] Last Admin: 02/10/18 09:01 Dose: 250 mls/hr Methylprednisolone Sodium Succinate (Solu-Medrol) 40 mg IVPUSH Q8H [facility] Last Admin: 02/11/18 00:43 Dose: 40 mg Sodium Chloride (Saline Flush) 10 ml FLUSH ASDIRECTED PRN PRN Reason: Keep Vein Open Last Admin: 02/11/18 00:44 Dose: 10 ml Sodium Chloride (Saline Flush) 10 ml FLUSH ASDIRECTED PRN PRN Reason: Keep Vein Open Discontinued Medications Albuterol (Proventil Neb Soln) Confirm Administered Dose 2.5 mg .ROUTE .STK-MED ONE Stop: 02/09/18 23:00 Last Admin: 02/09/18 23:02 Dose: Not Given Albuterol (Proventil Neb Soln) 2.5 mg NEB ONETIME ONE Stop: 02/09/18 23:01 Last Admin: 02/10/18 01:34 Dose: 2.5 mg Albuterol/Ipratropium (Duoneb 3.0-0.5 Mg/3 Ml) 3 ml NEB ONETIME ONE Stop: 02/09/18 22:30 Last Admin: 02/09/18 22:40 Dose: 3 ml Levofloxacin/Dextrose 500 mg/ (Premix) 100 mls @ 100 mls/hr IV ONETIME ONE Stop: 02/10/18 07:32 Last Admin: 02/10/18 06:51 Dose: 100 mls/hr Sodium Chloride (Normal Saline) 500 mls @ 999 mls/hr IV .BOLUS ONE Stop: 02/10/18 07:06 Last Admin: 02/10/18 06:50 Dose: 999 mls/hr Ketorolac Tromethamine (Toradol) 30 mg IVPUSH ONETIME ONE Stop: 02/09/18 23:01 Last Admin: 02/09/18 23:04 Dose: 30 mg Methylprednisolone Sodium Succinate (Solu-Medrol) 125 mg IVPUSH ONETIME ONE Stop: 02/09/18 22:30 Last Admin: 02/09/18 22:40 Dose: 125 mg Ondansetron HCl (Zofran) 4 mg IV Q4H PRN PRN Reason: Nausea/Vomiting - Exam Quality Assessment: No: Supplemental Oxygen General: Alert, Oriented HEENT: Pupils Equal Neck: Supple Lungs: Clear to Auscultation Cardiovascular: Regular Rate - Problem List & Annotations (1) COPD with exacerbation SNOMED Code(s): 692140915 Code(s): J44.1 - CHRONIC OBSTRUCTIVE PULMONARY DISEASE W (ACUTE) EXACERBATION Status: Acute Current Visit: Yes - Problem List Review Problem List Initiated/Reviewed/Updated: Yes - My Orders Last 24 Hours: My Active Orders 02/10/18 22:37 Alum Hydroxide/Mag Hydroxide [Mag-Al Susp] 15 ml PO Q2H PRN 02/10/18 22:40 Alum Hydroxide/Mag Hydroxide [Mag-Al Susp] 30 ml PO Q2H PRN 02/11/18 08:30 PRO B-TYPE NATRIUR PEPT,BNPPRO [CHEM] DAILY - Plan Plan:: I will discharge him home on DuoNeb, prednisone, and to see his PCP next week.
--- NOTE | 2018-02-11 09:26 | CR ---
INDICATION: Short of breath. CHEST: PA and lateral views of the chest were obtained 02/10/2018 and compared with 12/25/2017, again revealing the heart, mediastinum, and bony thorax to be essentially unremarkable with no active infiltrate or effusion identified. Somewhat flattened diaphragm leaves, slightly prominent AP diameter, and limited hyperaeration suggest obstructive airway disease - probable COPD - correlate clinically. IMPRESSION: 1. Stable chest, no acute process. 2. Probable COPD - correlate clinically. MTDD
[2018-02-11] MEDS: ALUMINUM HYDROXIDE CHEW SCH (09:31)
[2018-02-11] MEDS: MAGNESIUM CARBONATE CHEW SCH (09:31)
[2018-02-11] MEDS: Azithromycin 500 MG in Sodium Chloride 0.9% 250 ML IV SCH (09:33)
== END 2018-02-11 11:15 | disposition home or self-care (01) ==
LOC: FB.ED 22:10 → FB.MS 02-10 00:02
PROVIDERS: ADMIT Emergency Medicine; ATTEND Family Medicine
DX: J44.1 Chronic obstructive pulmonary disease with (acute) exacerbation (principal); E87.1 Hypo-osmolality and hyponatremia
CPT/HCPCS: 36415; 71046; 80048; 81001; 82803; 83605; 83880; 84484; 85025; 87040; 87070; 87205; 93005; 94150; 94640; 96365; 96366; 96367; 96375; 96376; 99285; A9270; G0378; J0456; J0696; J1885; J1956; J2920; J2930; J7040; J7050; 96374; J7620-GY

== ENCOUNTER 2021-04-28 03:38 | Observation (INO) | payer BC, OTHER ==
[2021-04-28] MEDS ORDERED: Albuterol/Ipratropium 3.0-0.5 MG/3 ML Neb Soln NEB ONE (03:53)
--- NOTE | 2021-04-28 04:01 | EDM.PDOC ---
ED HPI GENERAL MEDICAL PROBLEM - General Chief Complaint: Respiratory Problem Stated Complaint: SOB Time Seen by Provider: 04/28/21 03:58 Source of Information: Reports: Patient History Limitations: Reports: No Limitations - History of Present Illness INITIAL COMMENTS - FREE TEXT/NARRATIVE: pt c/o difficulties breathing since yesterday afternoon, describe coarse cough , SOB , wheezing and chest pressure worening since then , denies any fever chills or any other associated sx he has Hx of smoking and COPD. also Hxof similar presentations. 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 - Related Data Allergies Allergy/AdvReac Type Severity Reaction Status Date / Time No Known Allergies Allergy Verified 02/09/18 23:04 Home Meds: Home Meds Albuterol [Proventil HFA] 2 puff INH QID PRN 12/25/17 [History] Albuterol/Ipratropium [DuoNeb 3.0-0.5 MG/3 ML] 3 ml IH QID 12/25/17 [History] Glycopyrrolate/Formoterol Fum [Bevespi Aerosphere Inhaler] 2 puff IH BID 12/25/17 [History] Ibuprofen [Advil] 400 mg PO DAILY@1200 12/27/17 [History] Past Medical History HEENT History: Reports: Impaired Vision Respiratory History: Reports: COPD - Infectious Disease History Infectious Disease History: Reports: None - Past Surgical History HEENT Surgical History: Reports: Oral Surgery, Tonsillectomy, Other (See Below) Other HEENT Surgeries/Procedures: surgery on ear drum Social & Family History - Family History Family Medical History: No Pertinent Family History - Caffeine Use Caffeine Use: Reports: None Other Caffeine Use: one cup daily ED ROS GENERAL - Review of Systems Review Of Systems: See Below Constitutional: Denies: Fever, Chills HEENT: Reports: No Symptoms Respiratory: Reports: Shortness of Breath, Wheezing, Cough. Denies: Pleuritic Chest Pain Cardiovascular: Reports: No Symptoms GI/Abdominal: Reports: No Symptoms, Abdominal Pain Musculoskeletal: Reports: No Symptoms Skin: Reports: No Symptoms Neurological: Reports: No Symptoms Psychiatric: Reports: No Symptoms ED EXAM, GENERAL - Physical Exam Exam: See Below Exam Limited By: No Limitations General Appearance: Moderate Distress Eye Exam: Bilateral Eye: Normal Inspection Nose: Normal Inspection, Normal Mucosa Throat/Mouth: Normal Inspection, Normal Oropharynx Head: Atraumatic, Normocephalic Neck: Normal Inspection, Supple, Non-Tender Respiratory/Chest: Respiratory Distress, Wheezing Cardiovascular: Normal Peripheral Pulses, Regular Rate, Rhythm, No Murmur GI/Abdominal: Normal Bowel Sounds, Soft Extremities: Normal Inspection, Normal Range of Motion, Normal Capillary Refill #1 Interpretation EKG Date: 04/28/21 Time: 04:00 Rhythm: Other (sinus tachycardia) Rate (Beats/Min): 102 [place]: LAD-Left [place] Deviation P-Wave: Present QRS: Normal ST-T: Normal QT: Normal Course - Vital Signs Text/Narrative:: pt condition stabilized after duo nebs and steroids but he is still very winded after 4 hrs obs here in ED, his sats are at 89 on 2 liters at rest , cxr is clear , labs shows mildly elevated wbc . discussed w Dr De La Cruz and will admit pt to his care for farther OBS . Dx ... COPD exacerbation. Last Recorded V/S: Last Vital Signs Temp 36.9 C 04/28/21 03:46 Pulse 108 H 04/28/21 03:58 Resp 24 H 04/28/21 03:46 BP 144/88 H 04/28/21 03:46 Pulse Ox 97 04/28/21 03:46 - Orders/Labs/Meds Orders: Active Orders 24 hr Category Date Time Status RT Aerosol Therapy [RC] ASDIRECTED Care 04/28/21 03:53 Active Chest 1V Frontal [CR] Stat Exams 04/28/21 04:02 Taken EKG 12 Lead [EK] Routine Ther 04/28/21 04:02 Ordered Labs: Laboratory Tests 04/28/21 04/28/21 04/28/21 Range/Units 04:25 04:25 04:25 WBC 13.0 H (3.2-10.1) x10-3/uL RBC 4.83 (3.90-5.90) x10(6)uL Hgb 15.6 (12.9-17.7) g/dL Hct 46.4 (38.3-50.1) % MCV 96.0 (80.8-98.7) fL MCH 32.2 (27.0-33.3) pg MCHC 33.6 (28.7-35.3) g/dL RDW 13.4 (12.4-15.0) % Plt Count 294 (117-477) x10(3)uL MPV 7.7 (6.7-11.0) fL Neut % (Auto) 83.1 H (40.3-71.8) % Lymph % (Auto) 6.3 L (15.8-45.3) % [place] % (Auto) 6.6 (5.5-15.2) % Eos % (Auto) 3.0 (0.1-6.8) % Baso % (Auto) 1.0 (0.3-3.8) % Neut # (Auto) 10.8 H (1.7-6.9) x10-3/uL Lymph # (Auto) 0.8 (0.5-4.5) x10-3/uL [place] # (Auto) 0.9 (0.0-1.2) x10-3/uL Eos # (Auto) 0.4 (0.0-0.6) x10-3/uL Baso # (Auto) 0.1 (0.0-0.3) x10-3/uL Sodium 137 (135-145) mmol/L Potassium 4.1 (3.5-5.3) mmol/L Chloride 102 (100-110) mmol/L Carbon Dioxide 24 (21-32) mmol/L BUN 10 D (7-18) mg/dL Creatinine 1.0 (0.70-1.30) mg/dL Est Cr Clr Drug Dosing 77.09 mL/min Estimated GFR (MDRD) > 60 (>60) BUN/Creatinine Ratio 10.0 (9-20) Glucose 129 H (80-116) mg/dL Calcium 8.8 (8.6-10.2) mg/dL Total Bilirubin 0.8 (0.1-1.3) mg/dL AST 13 (5-25) IU/L ALT 21 (12-36) U/L Alkaline Phosphatase 81 (56-112) IU/L Troponin I 5.6 (4.0-60.3) pg/mL Total Protein 7.7 (6.0-8.0) g/dL Albumin 3.7 (3.5-5.2) g/dL Globulin 4.0 g/dL Albumin/Globulin Ratio 0.9 Meds: Medications Discontinued Medications Generic Name Dose Route Start Last Admin Trade Name Tia PRN Reason Stop Dose Admin Albuterol/Ipratropium 3 ml 04/28/21 03:53 04/28/21 03:58 Albuterol/Ipratropium 3.0-0.5 Mg/3 Ml Neb Soln NEB 04/28/21 03:54 3 ml ONETIME ONE Administration Methylprednisolone Sodium Succinate 125 mg 04/28/21 04:53 04/28/21 04:56 Methylprednisolone Sodium Succinate 125 Mg/2 Ml Sdv IVPUSH 04/28/21 04:54 125 mg ONETIME ONE Administration Morphine Sulfate 4 mg 04/28/21 04:25 04/28/21 04:30 Morphine 4 Mg/Ml Vial IVPUSH 04/28/21 04:26 4 mg ONETIME ONE Administration Departure - Departure Time of Disposition: 08:26 Disposition: Refer to Observation Clinical Impression: COPD (chronic obstructive pulmonary disease) - Discharge Information Referrals: PCP,None [Primary Care Provider] - Forms: ED Department Discharge Sepsis Event Note (ED) - Evaluation Sepsis Screening Result: Possible Sepsis Risk - Focused Exam Vital Signs: Vital Signs Temp Pulse Resp BP Pulse Ox 04/28/21 03:58 108 H 04/28/21 03:46 36.9 C 100 24 H 144/88 H 97 - My Orders Last 24 Hours: My Active Orders 04/28/21 03:53 RT Aerosol Therapy [RC] ASDIRECTED 04/28/21 04:02 Chest 1V Frontal [CR] Stat EKG 12 Lead [EK] Routine - Assessment/Plan Last 24 Hours: My Active Orders 04/28/21 03:53 RT Aerosol Therapy [RC] ASDIRECTED 04/28/21 04:02 Chest 1V Frontal [CR] Stat EKG 12 Lead [EK] Routine
[2021-04-28] MEDS ORDERED: Morphine 4 MG/ML VIAL IVPUSH ONE (04:25)
[2021-04-28] MEDS ORDERED: methylPREDNISolone Sodium Succinate 125 MG/2 ML SDV IVPUSH ONE (04:53)
--- NOTE | 2021-04-28 09:13 | PCM.HP.2 ---
H&P History of Present Illness - General Date of Service: 04/28/21 Admit Problem/Dx: Admission Diagnosis/Problem Admission Diagnosis/Problem COPD, Severe chronic obstructive pulmonary disease Source of Information: Patient History Limitations: Reports: No Limitations - History of Present Illness Initial Comments - Free Text/Narative: Jair is a 54-year-old male complaining of shortness of breath, wheezing and cough since Wednesday. He has a history of asthma/COPD/tobacco abuse. He is fully immunized against:COVID 19. He has no systemic symptoms. - Related Data Allergies/Adverse Reactions: Allergies Allergy/AdvReac Type Severity Reaction Status Date / Time No Known Allergies Allergy Verified 02/09/18 23:04 Home Medications: Home Meds Albuterol [Proventil HFA] 2 puff INH QID PRN 12/25/17 [History] Albuterol/Ipratropium [DuoNeb 3.0-0.5 MG/3 ML] 3 ml IH QID 12/25/17 [History] Glycopyrrolate/Formoterol Fum [Bevespi Aerosphere Inhaler] 2 puff IH BID 12/25/17 [History] Ibuprofen [Advil] 400 mg PO DAILY@1200 12/27/17 [History] Past Medical History HEENT History: Reports: Impaired Vision Respiratory History: Reports: COPD - Infectious Disease History Infectious Disease History: Reports: None - Past Surgical History HEENT Surgical History: Reports: Oral Surgery, Tonsillectomy, Other (See Below) Other HEENT Surgeries/Procedures: surgery on ear drum Social & Family History - Family History Family Medical History: No Pertinent Family History - Tobacco Use Tobacco Use Status *Q: Former Tobacco User Used Tobacco, but Quit: Yes Month/Year Tobacco Last Used: jun - Caffeine Use Caffeine Use: Reports: Coffee Other Caffeine Use: one cup daily - Recreational Drug Use Recreational Drug Use: No H&P Review of Systems - Review of Systems: Review Of Systems: Comprehensive ROS is negative, except as noted in HPI. Exam - Exam Exam: See Below - Vital Signs Vital Signs: Last Vital Signs Temp 98.4 F 04/28/21 03:46 Pulse 108 H 04/28/21 03:58 Resp 24 H 04/28/21 03:46 BP 144/88 H 04/28/21 03:46 Pulse Ox 97 04/28/21 03:46 Weight: 67.132 kg - Exam General: Moderate Distress HEENT: PERRLA, Hearing Intact, Mucosa Moist & [place], Nares Patent, Normal Nasal Septum, Posterior Pharynx Clear, Conjunctiva Clear, EOMI, EACs Clear, TMs Clear Neck: Supple, Trachea Midline, 2 Lungs: Rhonchi, Wheezing Cardiovascular: Tachycardia GI/Abdominal Exam: Normal Bowel Sounds, Soft, Non-Tender, No Organomegaly, No Distention, No Abnormal Bruit, No Mass, Pelvis Stable (Male) Exam: Deferred Rectal (Males) Exam: Deferred Back Exam: Normal Inspection, Full Range of Motion, NT Extremities: Normal Inspection, Normal Range of Motion, Non-Tender, No Pedal Edema, Normal Capillary Refill Skin: Warm, Dry, Intact Neurological: Cranial Nerves Intact, Reflexes Equal Bilateral Neuro Extensive - Mental Status: Alert, Oriented x3, Normal Mood/Affect, Normal Cognition Neuro Extensive - Motor, Sensory, Reflexes: CN II-XII Intact, Normal Gait, Normal Reflexes Psychiatric: Alert, Normal Affect, Normal Mood - Patient Data Lab Results Last 24 hrs: Laboratory Results - last 24 hr 04/28/21 04/28/21 04/28/21 Range/Units 04:25 04:25 04:25 WBC 13.0 H (3.2-10.1) x10-3/uL RBC 4.83 (3.90-5.90) x10(6)uL Hgb 15.6 (12.9-17.7) g/dL Hct 46.4 (38.3-50.1) % MCV 96.0 (80.8-98.7) fL MCH 32.2 (27.0-33.3) pg MCHC 33.6 (28.7-35.3) g/dL RDW 13.4 (12.4-15.0) % Plt Count 294 (117-477) x10(3)uL MPV 7.7 (6.7-11.0) fL Neut % (Auto) 83.1 H (40.3-71.8) % Lymph % (Auto) 6.3 L (15.8-45.3) % [place] % (Auto) 6.6 (5.5-15.2) % Eos % (Auto) 3.0 (0.1-6.8) % Baso % (Auto) 1.0 (0.3-3.8) % Neut # (Auto) 10.8 H (1.7-6.9) x10-3/uL Lymph # (Auto) 0.8 (0.5-4.5) x10-3/uL [place] # (Auto) 0.9 (0.0-1.2) x10-3/uL Eos # (Auto) 0.4 (0.0-0.6) x10-3/uL Baso # (Auto) 0.1 (0.0-0.3) x10-3/uL Sodium 137 (135-145) mmol/L Potassium 4.1 (3.5-5.3) mmol/L Chloride 102 (100-110) mmol/L Carbon Dioxide 24 (21-32) mmol/L BUN 10 D (7-18) mg/dL Creatinine 1.0 (0.70-1.30) mg/dL Est Cr Clr Drug Dosing 77.09 mL/min Estimated GFR (MDRD) > 60 (>60) BUN/Creatinine Ratio 10.0 (9-20) Glucose 129 H (80-116) mg/dL Calcium 8.8 (8.6-10.2) mg/dL Total Bilirubin 0.8 (0.1-1.3) mg/dL AST 13 (5-25) IU/L ALT 21 (12-36) U/L Alkaline Phosphatase 81 (56-112) IU/L Troponin I 5.6 (4.0-60.3) pg/mL Total Protein 7.7 (6.0-8.0) g/dL Albumin 3.7 (3.5-5.2) g/dL Globulin 4.0 g/dL Albumin/Globulin Ratio 0.9 Result Diagrams: 04/28/21 04:25 04/28/21 04:25 Sepsis Event Note - Evaluation Sepsis Screening Result: Possible Sepsis Risk - Focused Exam Vital Signs: Vital Signs Temp Pulse Resp BP Pulse Ox 04/28/21 03:58 108 H 04/28/21 03:46 98.4 F 100 24 H 144/88 H 97 - Problem List (1) Tobacco abuse SNOMED Code(s): 619035863 ICD Code: Z72.0 - TOBACCO USE Status: Acute Current Visit: Yes (2) COPD (chronic obstructive pulmonary disease) SNOMED Code(s): 95452132 ICD Code: J44.9 - CHRONIC OBSTRUCTIVE PULMONARY DISEASE, UNSPECIFIED Status: Acute Current Visit: Yes Qualifiers: COPD type: COPD with acute lower respiratory infection Qualified Code(s): J44.0 - Chronic obstructive pulmonary disease with (acute) lower respiratory infection Problem List Initiated/Reviewed/Updated: Yes Orders Last 24hrs: Active Orders 24 hr Category Date Time Status Admission Status [Patient Status] [ADT] Routine ADT 04/28/21 08:27 Active RT Aerosol Therapy [RC] ASDIRECTED Care 04/28/21 03:53 Active Chest 1V Frontal [CR] Stat Exams 04/28/21 04:02 Taken CORONAVIRUS COVID-19 UZAIR [MOLEC] Stat Lab 04/28/21 08:40 Ordered PRO B-TYPE NATRIUR PEPT,BNPPRO [CHEM] Stat Lab 04/28/21 09:10 Ordered EKG 12 Lead [EK] Routine Ther 04/28/21 04:02 Ordered Assessment/Plan Comment:: Admit for IV steroid therapy/IS/IV Antibioitics
[2021-04-28] MEDS ORDERED: Albuterol/Ipratropium 3.0-0.5 MG/3 ML Neb Soln NEB STA (10:08)
[2021-04-28] MEDS ORDERED: Albuterol/Ipratropium 3.0-0.5 MG/3 ML Neb Soln ONE (10:10)
[2021-04-28] MEDS: Levofloxacin/Dextrose 5%-Water 750 MG in Premix Bag 1 BAG IV SCH (10:20)
[2021-04-28] MEDS ORDERED: Albuterol/Ipratropium 3.0-0.5 MG/3 ML Neb Soln INH PRN (10:23)
--- NOTE | 2021-04-28 10:33 | CR ---
INDICATION: Cough. CHEST, ONE VIEW: Portable AP upright examination with two images, 04/28/21, was compared with 02/10/18 and 12/25/17. Overlying EKG leads are noted. Heart, mediastinum and bony thorax were unremarkable. Pulmonary markings are similar to the previous examination without a definite active infiltrate or effusion. IMPRESSION: No acute process. MTDD
[2021-04-28] MEDS: Sodium Chloride 0.9% 10 ML Syringe FLUSH PRN ×4 (11:00→20:31)
[2021-04-28] MEDS: Cyclobenzaprine 10 MG Tab PO PRN (11:01)
[2021-04-28] MEDS: Ketorolac 30 MG/ML SDV IVPUSH PRN ×2 (11:02→18:19)
[2021-04-28] MEDS: methylPREDNISolone Sodium Succinate 125 MG/2 ML SDV IVPUSH SCH ×2 (12:38→20:30)
[2021-04-28] MEDS: Albuterol/Ipratropium 3.0-0.5 MG/3 ML Neb Soln NEB SCH ×2 (15:14→20:30)
[2021-04-29] MEDS: Sodium Chloride 0.9% 10 ML Syringe FLUSH PRN ×5 (05:18→20:27)
[2021-04-29] MEDS: methylPREDNISolone Sodium Succinate 125 MG/2 ML SDV IVPUSH SCH ×3 (05:18→20:26)
[2021-04-29] MEDS: Albuterol/Ipratropium 3.0-0.5 MG/3 ML Neb Soln NEB SCH ×5 (05:19→20:24)
[2021-04-29] MEDS: Ketorolac 30 MG/ML SDV IVPUSH PRN (05:20)
[2021-04-29] MEDS: Cyclobenzaprine 10 MG Tab PO PRN (05:22)
--- NOTE | 2021-04-29 09:14 | PCM.PN ---
- General Info Date of Service: 04/29/21 Subjective Update: Jair feels better. Oxygen needs less. Still coughing up productive sputum. No fever Functional Status: Reports: Pain Controlled, Tolerating Diet - Review of Systems General: Reports: No Symptoms HEENT: Reports: No Symptoms Pulmonary: Reports: Shortness of Breath, Cough Cardiovascular: Reports: No Symptoms - Patient Data Vitals - Most Recent: Last Vital Signs Temp 98.2 F 04/29/21 04:00 Pulse 95 04/29/21 05:20 Resp 20 04/29/21 04:00 BP 115/67 04/29/21 04:00 Pulse Ox 95 04/29/21 04:00 Weight - Most Recent: 57.635 kg Lab Results Last 24 Hours: Laboratory Results - last 24 hr 04/28/21 04/28/21 Range/Units 08:40 10:00 NT-Pro-B Natriuret Pep 97 (<=125) pg/mL SARS-CoV-2 RNA (UZAIR) Negative (NEGATIVE) Med Orders - Current: Current Medications Albuterol/Ipratropium (Albuterol/Ipratropium 3.0-0.5 Mg/3 Ml Neb Soln) 3 ml NEB QIDRT [facility] Last Admin: 04/29/21 08:14 Dose: Not Given Documented by: Albuterol/Ipratropium (Albuterol/Ipratropium 3.0-0.5 Mg/3 Ml Neb Soln) 3 ml INH Q4H PRN PRN Reason: SHORTNESS OF BREATH Cyclobenzaprine HCl (Cyclobenzaprine 10 Mg Tab) 10 mg PO TID PRN PRN Reason: Spasms Last Admin: 04/29/21 05:22 Dose: 10 mg Documented by: Levofloxacin/Dextrose 750 mg/ (Premix) 150 mls @ 100 mls/hr IV Q24H [facility] Last Admin: 04/28/21 10:20 Dose: 100 mls/hr Documented by: Ketorolac Tromethamine (Ketorolac 30 Mg/Ml Sdv) 30 mg IVPUSH Q6H PRN PRN Reason: Pain Stop: 05/03/21 10:49 Last Admin: 04/29/21 05:20 Dose: 30 mg Documented by: Methylprednisolone Sodium Succinate (Methylprednisolone Sodium Succinate 125 Mg/2 Ml Sdv) 125 mg IVPUSH Q8H [facility] Last Admin: 04/29/21 05:18 Dose: 125 mg Documented by: Sodium Chloride (Sodium Chloride 0.9% 10 Ml Syringe) 10 ml FLUSH ASDIRECTED PRN PRN Reason: Flush Last Admin: 04/29/21 05:21 Dose: 10 ml Documented by: Discontinued Medications Albuterol/Ipratropium (Albuterol/Ipratropium 3.0-0.5 Mg/3 Ml Neb Soln) 3 ml NEB ONETIME ONE Stop: 04/28/21 03:54 Last Admin: 04/28/21 03:58 Dose: 3 ml Documented by: Albuterol/Ipratropium (Albuterol/Ipratropium 3.0-0.5 Mg/3 Ml Neb Soln) 3 ml NEB STAT STA Stop: 04/28/21 10:09 Last Admin: 04/28/21 10:12 Dose: 3 ml Documented by: Albuterol/Ipratropium (Albuterol/Ipratropium 3.0-0.5 Mg/3 Ml Neb Soln) Confirm Administered Dose 3 ml .ROUTE .STK-MED ONE Stop: 04/28/21 10:11 Last Admin: 04/28/21 11:09 Dose: Not Given Documented by: Methylprednisolone Sodium Succinate (Methylprednisolone Sodium Succinate 125 M g/2 Ml Sdv) 125 mg IVPUSH ONETIME ONE Stop: 04/28/21 04:54 Last Admin: 04/28/21 04:56 Dose: 125 mg Documented by: Morphine Sulfate (Morphine 4 Mg/Ml Vial) 4 mg IVPUSH ONETIME ONE Stop: 04/28/21 04:26 Last Admin: 04/28/21 04:30 Dose: 4 mg Documented by: - Exam Quality Assessment: Supplemental Oxygen General: Alert, Mild Distress Neck: Supple Lungs: Rhonchi Cardiovascular: Regular Rate GI/Abdominal Exam: Normal Bowel Sounds - Patient Data Lab Results Last 24 hrs: Laboratory Results - last 24 hr 04/28/21 04/28/21 Range/Units 08:40 10:00 NT-Pro-B Natriuret Pep 97 (<=125) pg/mL SARS-CoV-2 RNA (UZAIR) Negative (NEGATIVE) Result Diagrams: 04/28/21 04:25 04/28/21 04:25 Sepsis Event Note - Evaluation Sepsis Screening Result: No Definite Risk - Focused Exam Vital Signs: Vital Signs Temp Pulse Resp BP Pulse Ox 04/29/21 05:20 95 04/29/21 04:00 98.2 F 95 20 115/67 95 04/29/21 00:00 97.4 F 94 22 H 121/74 93 L - Problem List & Annotations (1) Tobacco abuse SNOMED Code(s): 469121861 Code(s): Z72.0 - TOBACCO USE Status: Acute Current Visit: Yes (2) COPD (chronic obstructive pulmonary disease) SNOMED Code(s): 06932201 Code(s): J44.9 - CHRONIC OBSTRUCTIVE PULMONARY DISEASE, UNSPECIFIED Status: Acute Current Visit: Yes Qualifiers: COPD type: COPD with acute lower respiratory infection Qualified Code(s): J44.0 - Chronic obstructive pulmonary disease with (acute) lower respiratory infection - Problem List Review Problem List Initiated/Reviewed/Updated: Yes - My Orders Last 24 Hours: My Active Orders 04/28/21 10:09 Height and Weight [RC] 06 Oxygen Therapy [RC] PRN RT Aerosol Therapy [RC] ASDIRECTED Up With Assistance [RC] ASDIRECTED VTE/DVT Education [RC] DAILY Vital Signs [RC] 08,12,16,20,00,04 Resuscitation Status Routine 04/28/21 10:15 Levofloxacin/Dextrose 5%-Water [Levaquin in D5W 750 MG/150 ML] 750 mg Premix Bag 1 bag IV Q24H 04/28/21 10:23 Albuterol/Ipratropium [DuoNeb 3.0-0.5 MG/3 ML] 3 ml INH Q4H PRN 04/28/21 10:29 Sodium Chloride 0.9% [Saline Flush] 10 ml FLUSH ASDIRECTED PRN 04/28/21 10:49 Ketorolac [Toradol] 30 mg IVPUSH Q6H PRN 04/28/21 10:51 Cyclobenzaprine [Flexeril] 10 mg PO TID PRN 04/28/21 13:00 methylPREDNISolone Sod Succ [Solu-MEDROL] 125 mg IVPUSH Q8H 04/28/21 16:00 Albuterol/Ipratropium [DuoNeb 3.0-0.5 MG/3 ML] 3 ml NEB QIDRT - Plan Plan:: Continue current therapy IV steroids, antibiotics. Encourage IS
[2021-04-29] MEDS: Levofloxacin/Dextrose 5%-Water 750 MG in Premix Bag 1 BAG IV SCH (10:10)
[2021-04-30] MEDS: methylPREDNISolone Sodium Succinate 125 MG/2 ML SDV IVPUSH SCH (04:08)
[2021-04-30] MEDS: Sodium Chloride 0.9% 10 ML Syringe FLUSH PRN (04:10)
[2021-04-30] MEDS: Albuterol/Ipratropium 3.0-0.5 MG/3 ML Neb Soln NEB SCH ×3 (06:07→11:29)
[2021-04-30] MEDS: Levofloxacin/Dextrose 5%-Water 750 MG in Premix Bag 1 BAG IV SCH (09:22)
--- NOTE | 2021-05-01 01:48 | DISCH ---
DISCHARGE DATE: 04/30/2021 REASON FOR ADMISSION: 1. COPD exacerbation. 2. Tobacco abuse. BRIEF HISTORY: This is a 55-year-old male, who was admitted with cough, wheezing, shortness of breath. Negative chest x-ray and COVID. White cell count 13.5. He was given Solu-Medrol and Levaquin, improved, and now he is off oxygen and ready to go home today. I discussed tobacco cessation with him. I will send him home on Levaquin and prednisone for 5 days. Followup in the office with PCP. /[id number] SRIDHAR/MARY
== END 2021-04-30 11:30 | disposition home or self-care (01) ==
LOC: FB.ED 03:38 → FB.MS 08:40
PROVIDERS: ADMIT Family Medicine; ATTEND Family Medicine
DX: J44.1 Chronic obstructive pulmonary disease with (acute) exacerbation (principal); J44.0 Chronic obstructive pulmonary disease with (acute) lower respiratory infection; Z79.899 Other long term (current) drug therapy; Z98.890 Other specified postprocedural states; Z87.891 Personal history of nicotine dependence; Z20.822 Contact with and (suspected) exposure to COVID-19
CPT/HCPCS: 36415; 71045; 80053; 83880; 84484; 85025; 85027; 87635; 93005; 94640; 96365; 96366; 96375; 96376; 99285; A9270; G0378; J1885; J1956; J2270; J2930; 96374; J7620-GY; U0002

== ENCOUNTER 2022-01-23 06:08 | Day surgery (SDC) | payer BC ==
[2022-01-23] MEDS ORDERED: Propofol 200 MG/20 ML SDV IV ONE (06:09)
[2022-01-23] MEDS ORDERED: Sodium Chloride 0.9% 10 ML Syringe FLUSH PRN (06:15)
[2022-01-23] MEDS ORDERED: Lactated Ringers 1,000 ML IV SCH (06:15)
== END 2022-01-23 08:45 | disposition home or self-care (01) ==
LOC: FB.SDS 06:08
PROVIDERS: ATTEND Surgery
DX: Z12.11 Encounter for screening for malignant neoplasm of colon (principal); K57.30 Diverticulosis of large intestine without perforation or abscess without bleeding; J45.909 Unspecified asthma, uncomplicated; Z98.890 Other specified postprocedural states; Z88.0 Allergy status to penicillin; Z88.1 Allergy status to other antibiotic agents; Z79.51 Long term (current) use of inhaled steroids; Z88.6 Allergy status to analgesic agent; Z79.899 Other long term (current) drug therapy; Z87.891 Personal history of nicotine dependence
CPT/HCPCS: 00812-QZ; J2704; J7120